=== PATIENT | male | born 1980 | race Caucasian/White ===

== ENCOUNTER → 2017-05-27 | Outpatient (CLI) | payer OTHER ==
[2017-05-27 13:06] LABS: Blood Urea Nitrogen 16 mg/dL (9-20); Lithium 0.4 mmol/L
[2017-05-27 13:23] LABS: T4, Free (Free Thyroxine) 1.33 ng/dL (0.78-2.19)
== END | disposition home or self-care (01) ==
LOC: LABWHC1 12:16
PROVIDERS: ATTEND Psychiatry & Neurology Psychiatry
DX: Z51.81 Encounter for therapeutic drug level monitoring (principal); Z79.899 Other long term (current) drug therapy
CPT/HCPCS: 36415; 80178; 82565; 84439; 84443; 84520

== ENCOUNTER → 2017-07-28 | Outpatient (CLI) | payer OTHER ==
[2017-07-28 09:31] LABS: Blood Urea Nitrogen 19 mg/dL (9-20); Cholesterol 149 mg/dL (<200); Glucose 95 mg/dL (74-99); HDL Cholesterol 72 mg/dL (40-60); LDL Cholesterol,Calculated 63 mg/dL (0-99); Lithium 0.4 mmol/L; Triglycerides 69 mg/dL (<150)
[2017-07-28 09:48] LABS: T4, Free (Free Thyroxine) 1.03 ng/dL (0.78-2.19)
[2017-07-28 12:02] LABS: Hemoglobin A1C 5.1 % (4.0-6.0)
== END ==
LOC: LABWHC1 06:50
PROVIDERS: ATTEND Psychiatry & Neurology Psychiatry
DX: Z51.81 Encounter for therapeutic drug level monitoring (principal); Z79.899 Other long term (current) drug therapy
CPT/HCPCS: 36415; 80061; 80178; 82565; 82947; 83036; 84439; 84443; 84520

== ENCOUNTER → 2017-08-13 | Outpatient (CLI) | payer OTHER | END | disposition home or self-care (01) | LOC: LABWHC1 06:33 | PROVIDERS: ATTEND Psychiatry & Neurology Psychiatry | DX: Z51.81 Encounter for therapeutic drug level monitoring (principal); Z79.899 Other long term (current) drug therapy | CPT/HCPCS: 36415; 80178 ==

== ENCOUNTER → 2017-10-21 | Outpatient (CLI) | payer OTHER ==
[2017-10-21 11:35] LABS: Lithium 1.2 mmol/L
[2017-10-21 11:53] LABS: T4, Free (Free Thyroxine) 1.01 ng/dL (0.78-2.19)
== END | disposition home or self-care (01) ==
LOC: LABWHC1 10:57
PROVIDERS: ATTEND Psychiatry & Neurology Psychiatry
DX: Z51.81 Encounter for therapeutic drug level monitoring (principal); Z79.899 Other long term (current) drug therapy
CPT/HCPCS: 36415; 80178; 84439; 84443

== ENCOUNTER → 2018-06-07 | Outpatient (CLI) | payer OTHER ==
--- NOTE | 2018-06-08 08:03 | XR ---
EXAMINATION TYPE: XR abdomen 1V DATE OF EXAM: 06/07/2018 4:08 PM CLINICAL HISTORY: Nausea with vomiting. TECHNIQUE: Two supine KUB images of the abdomen are obtained. COMPARISON: None. FINDINGS: Some paucity of bowel gas is noted. Gas is seen in nondistended stomach as well as scattere d small and large bowel loops. There is no visceromegaly or suspicious calcification appreciated. The visualized osseous structures are intact. IMPRESSION: Overall nonspecific but strongly favor nonobstructive bowel gas pattern.
== END | disposition home or self-care (01) ==
LOC: RADXRMAIN 15:44
PROVIDERS: ATTEND Nurse Practitioner
DX: R11.2 Nausea with vomiting, unspecified (principal)
CPT/HCPCS: 74018

== ENCOUNTER 2020-04-05 10:30 | Emergency (ER) | payer OTHER ==
[2020-04-05 10:50] VITALS: RESP 18; TEMP 98.2
[2020-04-05] MEDS ORDERED: SODIUM CHLORIDE 0.9% 1,000 ML IV STA (11:21)
[2020-04-05] MEDS ORDERED: MORPHINE SULFATE 4 MG/ML SYRINGE IV STA (11:21)
[2020-04-05] MEDS ORDERED: ONDANSETRON 4 MG/2 ML VIAL IVP STA (11:21)
[2020-04-05 12:07] LABS: Basophils # (A) 0.1 k/uL (0-0.2); Basophils % (A) 1 %; Eosinophils # (A) 0.1 k/uL (0-0.7); Eosinophils % (A) 1 %; HGB 16.4 gm/dL (13.0-17.5); Lymphocytes # (A) 1.7 k/uL (1.0-4.8); Lymphocytes % (A) 28 %; MCH 29.4 pg (25.0-35.0); MCHC 32.8 g/dL (31.0-37.0); MCV 89.7 fL (80.0-100.0); Mean Platelet Volume 6.5; Monocytes # (A) 0.5 k/uL (0-1.0); Monocytes % (A) 8 %; Neutrophils # (A) 3.6 k/uL (1.3-7.7); Neutrophils % (A) 60 %; Platelet Count 317 k/uL (150-450); RBC 5.57 m/uL (4.30-5.90); RDW 12.4 % (11.5-15.5); WBC 6.1 k/uL (3.8-10.6)
[2020-04-05 12:25] LABS: ALT 26 U/L (4-49); AST 24 U/L (17-59); African American GFR (CKD) >90 (>60 ml/min/1.73 sqM); Albumin 5.2 g/dL (3.5-5.0); Alkaline Phosphatase 70 U/L (38-126); Amylase 61 U/L (30-110); Anion Gap 6 mmol/L; Blood Urea Nitrogen 16 mg/dL (9-20); Calcium 10.3 mg/dL (8.4-10.2); Carbon Dioxide 26 mmol/L (22-30); Chloride 100 mmol/L (98-107); Glucose 88 mg/dL (74-99); Lipase 55 U/L (23-300); Non-African American GFR(CKD) >90 (>60 ml/min/1.73 sqM); Sodium 132 mmol/L (137-145); Total Bilirubin 0.7 mg/dL (0.2-1.3)
--- NOTE | 2020-04-05 12:30 | ED ---
Abdominal Pain HPI - General Chief Complaint: Abdominal Pain Stated Complaint: Abdominal pain Time Seen by Provider: 04/05/20 11:01 Source: patient Mode of arrival: wheelchair Limitations: no limitations - History of Present Illness Initial Comments: Patient is a 40-year-old male presenting to emergency Department with complaints of right lower quadrant abdominal pain as well as nausea and vomiting 2 days. Patient states about 5 days ago he started coming down with flulike symptoms since his body aches, chills. Patient states he went to his PCP 2 days ago and was tested for Covid, he is awaiting the results. Patient states 2 days ago is when his right lower quadrant abdominal pain started as well as the nausea and vomiting. He states it is sharp, continuous, 7/10. He does admit to some radiation into his right groin. He denies any diarrhea. He denies history of abdominal surgeries. He denies any fevers. He does have a mild cough. He denies any chest pain or shortness of breath. He has no further complaints at this time. Upon arrival to the ER, his vital signs are stable. - Related Data Home Medications Medication Instructions Recorded Confirmed amLODIPine [Norvasc] 10 mg PO DAILY 04/05/20 04/05/20 lisinopriL [Zestril] 20 mg PO DAILY 04/05/20 04/05/20 Allergies Allergy/AdvReac Type Severity Reaction Status Date / Time Penicillins Allergy Unknown Verified 04/05/20 11:39 Childhood Review of Systems ROS Statement: Those systems with pertinent positive or pertinent negative responses have been documented in the HPI. ROS Other: All systems not noted in ROS Statement are negative. Past Medical History Past Medical History: Hypertension History of Any Multi-Drug Resistant Organisms: None Reported Past Surgical History: No Surgical Hx Reported Past Psychological History: Bipolar Smoking Status: Current every day smoker Past Alcohol Use History: None Reported Past Drug Use History: Marijuana General Exam - General Exam Comments Initial Comments: GENERAL: Patient is well-developed and well-nourished. Patient is nontoxic and in no acute distress. HEAD: Atraumatic, normocephalic. EYES: Pupils equal round and reactive to light, extraocular movements intact, sclera anicteric, conjunctiva are normal. Eyelids were unremarkable. ENT: TMs normal, nares patent, oropharynx clear without exudates. Moist mucous membranes. NECK: Normal range of motion, supple without lymphadenopathy or JVD. LUNGS: Unlabored respirations. Breath sounds clear to auscultation bilaterally and equal. No wheezes rales or rhonchi. HEART: Regular rate and rhythm without murmurs, rubs or gallops. ABDOMEN: Tender in the right lower quadrant, positive guarding. Soft, normoactive bowel sounds. No masses appreciated. : Deferred MUSCULOSKELETAL: Normal extremities with adequate strength and normal range of motion, no pitting or edema. No clubbing or cyanosis. NEUROLOGICAL: Patient is alert and oriented x 3. Motor and sensory are also intact. Cranial nerves II through XII grossly intact. Symmetrical smile. Normal speech, normal gait. PSYCH: Normal mood, normal affect. SKIN: Warm, Dry, normal turgor, no rashes or lesions noted. Limitations: no limitations Course Vital Signs 04/05/20 04/05/20 04/05/20 10:45 13:00 13:34 Temperature 98.2 F 98.2 F Pulse Rate 109 H 76 72 Respiratory 18 18 18 Rate Blood Pressure 120/79 132/65 129/65 O2 Sat by Pulse 99 99 99 Oximetry Medical Decision Making - Medical Decision Making Patient is a 40-year-old male here for right lower quadrant pain, nausea and vomiting 2 days. He has had flulike symptoms for the last 5 days, Covid tested 2 days ago, awaiting the results. He arrives afebrile. He does have tenderness in right lower quadrant with guarding. Labs show a normal white count, normal lipase, normal lactic acid. Urine is normal. EKG the abdomen shows no evidence of appendicitis, does have some mild abdominal lymph nodes, no other acute findings. Patient received some fluids, Zofran and pain control. He reports improvement of symptoms. I discussed with patient is most likely viral in nature. I recommended continuing Tylenol Motrin for discomfort. He can follow-up with his regular doctor. He is in agreement with this plan of c are. Return parameters were discussed with the patient he verbalizes understanding. Case discussed with Dr. Velazquez. - Lab Data Result diagrams: 04/05/20 11:43 04/05/20 11:43 Lab Results 04/05/20 04/05/20 04/05/20 Range/Units 11:43 11:43 11:43 WBC 6.1 (3.8-10.6) k/uL RBC 5.57 (4.30-5.90) m/uL Hgb 16.4 (13.0-17.5) gm/dL Hct 50.0 (39.0-53.0) % MCV 89.7 (80.0-100.0) fL MCH 29.4 (25.0-35.0) pg MCHC 32.8 (31.0-37.0) g/dL RDW 12.4 (11.5-15.5) % Plt Count 317 (150-450) k/uL MPV 6.5 Neutrophils % 60 % Lymphocytes % 28 % Monocytes % 8 % Eosinophils % 1 % Basophils % 1 % Neutrophils # 3.6 (1.3-7.7) k/uL Lymphocytes # 1.7 (1.0-4.8) k/uL Monocytes # 0.5 (0-1.0) k/uL Eosinophils # 0.1 (0-0.7) k/uL Basophils # 0.1 (0-0.2) k/uL Sodium 132 L (137-145) mmol/L Potassium 5.0 (3.5-5.1) mmol/L Chloride 100 (98-107) mmol/L Carbon Dioxide 26 (22-30) mmol/L Anion Gap 6 mmol/L BUN 16 (9-20) mg/dL Creatinine 0.95 (0.66-1.25) mg/dL Est GFR (CKD-EPI)AfAm >90 (>60 ml/min/1.73 sqM) Est GFR (CKD-EPI)NonAf >90 (>60 ml/min/1.73 sqM) Glucose 88 (74-99) mg/dL Plasma Lactic Acid Alex 0.7 (0.7-2.0) mmol/L Calcium 10.3 H (8.4-10.2) mg/dL Total Bilirubin 0.7 (0.2-1.3) mg/dL AST 24 (17-59) U/L ALT 26 (4-49) U/L Alkaline Phosphatase 70 (38-126) U/L Total Protein 8.0 (6.3-8.2) g/dL Albumin 5.2 H (3.5-5.0) g/dL Amylase 61 (30-110) U/L Lipase 55 (23-300) U/L Urine Color Urine Appearance (Clear) Urine pH (5.0-8.0) Ur Specific [place] (1.001-1.035) Urine Protein (Negative) Urine Glucose (UA) (Negative) Urine Ketones (Negative) Urine Blood (Negative) Urine Nitrite (Negative) Urine Bilirubin (Negative) Urine Urobilinogen (<2.0) mg/dL Ur Leukocyte Esterase (Negative) 04/05/20 Range/Units 13:03 WBC (3.8-10.6) k/uL RBC (4.30-5.90) m/uL Hgb (13.0-17.5) gm/dL Hct (39.0-53.0) % MCV (80.0-100.0) fL MCH (25.0-35.0) pg MCHC (31.0-37.0) g/dL RDW (11.5-15.5) % Plt Count (150-450) k/uL MPV Neutrophils % % Lymphocytes % % Monocytes % % Eosinophils % % Basophils % % Neutrophils # (1.3-7.7) k/uL Lymphocytes # (1.0-4.8) k/uL Monocytes # (0-1.0) k/uL Eosinophils # (0-0.7) k/uL Basophils # (0-0.2) k/uL Sodium (137-145) mmol/L Potassium (3.5-5.1) mmol/L Chloride (98-107) mmol/L Carbon Dioxide (22-30) mmol/L Anion Gap mmol/L BUN (9-20) mg/dL Creatinine (0.66-1.25) mg/dL Est GFR (CKD-EPI)AfAm (>60 ml/min/1.73 sqM) Est GFR (CKD-EPI)NonAf (>60 ml/min/1.73 sqM) Glucose (74-99) mg/dL Plasma Lactic Acid Alex (0.7-2.0) mmol/L Calcium (8.4-10.2) mg/dL Total Bilirubin (0.2-1.3) mg/dL AST (17-59) U/L ALT (4-49) U/L Alkaline Phosphatase (38-126) U/L Total Protein (6.3-8.2) g/dL Albumin (3.5-5.0) g/dL Amylase (30-110) U/L Lipase (23-300) U/L Urine Color Yellow Urine Appearance Clear (Clear) Urine pH 6.5 (5.0-8.0) Ur Specific [place] 1.017 (1.001-1.035) Urine Protein Negative (Negative) Urine Glucose (UA) Negative (Negative) Urine Ketones Negative (Negative) Urine Blood Negative (Negative) Urine Nitrite Negative (Negative) Urine Bilirubin Negative (Negative) Urine Urobilinogen <2.0 (<2.0) mg/dL Ur Leukocyte Esterase Negative (Negative) Disposition Clinical Impression: Abdominal pain, Nausea and vomiting Disposition: HOME SELF-CARE Condition: Stable Instructions (If sedation given, give patient instructions): Abdominal Pain (ED) Additional Instructions: Please return to the Emergency Department if symptoms worsen or any other concerns. Labs and this computed tomography scan today are normal. May take Zofran as needed for additional nausea. Continued increase fluid intake. Follow-up with your PCP. Is patient prescribed a controlled substance at d/c from ED?: No Referrals: Yanique Faulkner DO [Primary Care Provider] - 1-2 days
--- NOTE | 2020-04-05 12:37 | CT ---
EXAMINATION TYPE: CT abdomen pelvis w con DATE OF EXAM: 04/05/2020 COMPARISON: None. HISTORY: Right lower quadrant pain with nausea and vomiting. CT DLP: 728 mGycm, Automated Exposure Control for Dose Reduction was Utilized. CONTRAST: CT scan of the abdomen and pelvis is performed without oral but with IV Contrast, patient injected wi th 100 mL of Isovue 300. FINDINGS: LUNG BASES: No significant abnormality is appreciated. LIVER/GB: No significant abnormality is appreciated. PANCREAS: No significant abnormality is seen. SPLEEN: No significant abnormality is seen. ADRENALS: No significant abnormality is seen. KIDNEYS: Symmetric cortical medullary uptake and excretion without concerning renal mass or hydroneph rosis seen bilaterally. BOWEL: Normal size appendix is seen ascending in extending medially from the cecum in the right upper pelvis. No surrounding inflammatory change. No abnormal bowel dilatation. PROSTATE/SEMINAL VESICLES: No gross abnormality seen. LYMPH NODES: No greater than 1cm abdominal or pelvic lymph nodes are appreciated. OSSEOUS STRUCTURES: Sacralized L5 segment bilaterally or accessory bilateral L1 ribs. OTHER: No significant additional abnormality is seen. IMPRESSION: No CT evidence for acute appendicitis. No significant acute finding is seen to account fo r patient's clinical symptoms.
[2020-04-05] MEDS ORDERED: ONDANSETRON 4 MG ODT STARTER PACK 2 TAB BTL PO STA (13:20)
[2020-04-05 13:22] LABS: Appearance,Urine Clear (Clear); Bilirubin,Urine Negative (Negative); Blood,Urine Negative (Negative); Color,Urine Yellow; Glucose,Urine (UA) Negative (Negative); Ketones,Urine Negative (Negative); Leukocyte Esterase,Urine Negative (Negative); Nitrite,Urine Negative (Negative); PH, Urine 6.5 (5.0-8.0); Protein,Urine Negative (Negative); Specific Gravity,Urine 1.017 (1.001-1.035); Urobilinogen,Urine <2.0 mg/dL (<2.0)
[2020-04-05 13:36] VITALS: BP 129/65; PULSE 72
== END 2020-04-05 13:34 | disposition home or self-care (01) ==
LOC: EC 10:30
DX: R10.31 Right lower quadrant pain (principal); R11.2 Nausea with vomiting, unspecified; R10.813 Right lower quadrant abdominal tenderness; I10 Essential (primary) hypertension; F17.200 Nicotine dependence, unspecified, uncomplicated; Z79.899 Other long term (current) drug therapy; Z88.0 Allergy status to penicillin
CPT/HCPCS: 36415; 80053; 82150; 83605; 83690; 85025; 81003; 74177; 99284; 96374; 96375; 96361; J2270; J2405; S0119; Q9967

== ENCOUNTER → 2020-09-27 | Outpatient (CLI) | payer OTHER ==
[2020-09-27 11:55] LABS: Basophils # (A) 0.06 X 10*3/uL (0.00-0.10); Basophils % (A) 0.7 %; Eosinophils % (A) 2.5 %; HCT 47.7 % (39.6-50.0); HGB 15.5 g/dL (13.0-17.0); Lymphocytes # (A) 3.04 X 10*3/uL (0.90-5.00); Lymphocytes % (A) 37.6 %; MCH 29.1 pg (27.0-32.0); MCHC 32.5 g/dL (32.0-37.0); MCV 89.7 fL (80.0-97.0); Mean Platelet Volume 9.5 fL (9.5-12.2); Monocytes # (A) 0.77 X 10*3/uL (0.20-1.00); Monocytes % (A) 9.5 %; Neutrophils # (A) 3.98 X 10*3/uL (1.80-7.70); Neutrophils % (A) 49.3 %; Platelet Count 328 X 10*3/uL (140-440); RBC 5.32 X 10*6/uL (4.40-5.60); RDW 12.6 % (11.5-14.5); WBC 8.08 X 10*3/uL (4.50-10.00)
[2020-09-27 14:02] LABS: T4, Free (Free Thyroxine) 1.6 ng/dL (0.80-1.80)
[2020-09-27 14:04] LABS: African American GFR (CKD) 95.5 (60.0-200.0); Albumin/Globulin Ratio 2.17 (1.60-3.17); Bilirubin, Conjugated 0.2 mg/dL (0.20-0.40); Bilirubin,Unconjugated 0.7 mg/dL; Chol/HDL Ratio 3.32; Globulin 2.3 g/dL (1.6-3.3); LDL Cholesterol,Calculated 119.2 mg/dL (0.0-131.0); Non-African American GFR(CKD) 82.4 (60.0-200.0); Total Bilirubin 0.9 mg/dL (0.3-1.2); Total Protein 7.3 g/dL (6.2-8.2); VLDL Calculation 12.8 mg/dL (5.00-40.00)
[2020-09-27 17:49] LABS: Hemoglobin A1C 5.2 % (4.0-6.0)
== END | disposition home or self-care (01) ==
LOC: LABWHC1 07:24
PROVIDERS: ATTEND Nurse Practitioner Family
DX: Z79.899 Other long term (current) drug therapy (principal)
CPT/HCPCS: 36415; 80061; 80076; 82565; 82947; 83036; 84439; 84443; 84520; 85025

== ENCOUNTER 2022-01-22 09:25 | Day surgery (SDC) | payer OTHER ==
[2022-01-22 09:57] VITALS: RESP 18; TEMP 97.8
[2022-01-22] MEDS ORDERED: LACTATED RINGERS 1,000 ML IV ONE (10:06)
[2022-01-22] MEDS ORDERED: LACTATED RINGERS 1,000 ML IV SCH (10:15)
[2022-01-22] MEDS ORDERED: PROPOFOL 10 MG/ML 20 ML VIAL IV ONE (11:03)
--- NOTE | 2022-01-22 11:09 | P.GSHP ---
History of Present Illness H&P Date: 01/22/22 Chief Complaint: Rectal bleeding This a 41-year-old male has issues rectal bleeding. Patient resents today for colonoscopy Past Medical History Past Medical History: Hypertension History of Any Multi-Drug Resistant Organisms: None Reported Past Surgical History: No Surgical Hx Reported Past Psychological History: Bipolar Smoking Status: Current every day smoker Past Alcohol Use History: None Reported Past Drug Use History: Marijuana Medications and Allergies Home Medications Medication Instructions Recorded Confirmed Type amLODIPine [Norvasc] 10 mg PO DAILY 04/05/20 01/22/22 History lisinopriL [Zestril] 20 mg PO DAILY 04/05/20 01/22/22 History Lisdexamfetamine Dimesylate 10 mg PO QAM 01/22/22 01/22/22 History [Vyvanse] buPROPion XL [Wellbutrin XL] 150 PO QAM 01/22/22 History Allergies Allergy/AdvReac Type Severity Reaction Status Date / Time Penicillins Allergy Unknown Verified 04/05/20 11:39 Childhood Surgical - Exam Vital Signs Temp Pulse Resp BP Pulse Ox 97.8 F 87 18 121/60 98 01/22/22 09:56 01/22/22 09:56 01/22/22 09:56 01/22/22 09:56 01/22/22 09:56 - General well developed, well nourished, no distress - Eyes PERRL - ENT normal pinna - Neck no masses - Respiratory normal expansion - Cardiovascular Rhythm: regular - Abdomen Abdomen: soft, non tender Assessment and Plan Assessment: Rectal bleeding. We'll perform colonoscopy
--- NOTE | 2022-01-22 11:17 | P.OP ---
Date of Procedure: 01/22/22 Preoperative Diagnosis: Rectal bleeding Postoperative Diagnosis: External hemorrhoids Procedure(s) Performed: Colonoscopy Anesthesia: MAC Surgeon: Nima Fernandez Pathology: none sent Condition: stable Disposition: PACU Description of Procedure: The patient's placed on the endoscopy table in the lateral position. He received IV sedation. Digital rectal exam was performed. This revealed external hemorrhoids. The flexible colonoscope was then placed patient anus and passed throughout the entire colon. The ileocecal valve was visualized. The cecum, ascending and transverse colon appeared normal. The descending and sigmoid colon appeared normal. The scope was brought back the rectum this appea red normal. Scope was withdrawn from the anus and internal and external hemorrhoids are noted. The scope was withdrawn for patient. Presumed patient had bleeding from hemorrhoids. There was no bleeding seen on his scope today.
[2022-01-22 11:38] VITALS: BP 113/80; PULSE 90
== END 2022-01-22 11:59 | disposition home or self-care (01) ==
LOC: ORWHC2ENDO 09:25
PROVIDERS: ATTEND Surgery
DX: K64.4 Residual hemorrhoidal skin tags (principal); K62.5 Hemorrhage of anus and rectum; I10 Essential (primary) hypertension; F31.9 Bipolar disorder, unspecified; F17.200 Nicotine dependence, unspecified, uncomplicated; F12.90 Cannabis use, unspecified, uncomplicated; Z88.0 Allergy status to penicillin; Z79.899 Other long term (current) drug therapy
CPT/HCPCS: 45378; J2704

== ENCOUNTER → 2024-08-10 | Outpatient (CLI) | payer OTHER ==
[2024-08-10 15:09] LABS: Basophils % (A) 0.6 %; Eosinophils # (A) 0.06 X 10*3/uL (0.04-0.35); Eosinophils % (A) 0.8 %; HCT 44.9 % (39.6-50.0); HGB 14.7 g/dL (13.0-17.0); Lymphocytes % (A) 22.7 %; MCH 29.5 pg (27.0-32.0); MCHC 32.7 g/dL (32.0-37.0); MCV 90.2 FL (80.0-97.0); Monocytes # (A) 0.53 X 10*3/uL (0.20-1.00); Monocytes % (A) 6.7 %; NRBC Per 100 WBC 0 X 10*3/uL (0.00-0.01); Neutrophils # (A) 5.46 X 10*3/uL (1.80-7.70); Neutrophils % (A) 68.8 %; Platelet Count 341 X 10*3/uL (140-440); RBC 4.98 X 10*6/uL (4.40-5.60); RDW 12.6 % (11.5-14.5); WBC 7.93 X 10*3/uL (4.50-10.00)
[2024-08-10 15:10] LABS: Basophils # (A) 0.05 X 10*3/uL (0.00-0.10)
[2024-08-10 15:56] LABS: ALT 32 U/L (10-49); AST 28 U/L (14-35); Albumin 4.8 g/dL (3.8-4.9); Albumin/Globulin Ratio 2.18 Ratio (1.60-3.17); Alkaline Phosphatase 81 U/L (41-126); Bilirubin, Conjugated <0.20 mg/dL (0.20-0.40); Bilirubin,Unconjugated >0 mg/dL (0.20-1.00); Blood Urea Nitrogen 16.4 mg/dL (9.0-27.0); Chol/HDL Ratio 3.12 Ratio; Globulin 2.2 g/dL (1.6-3.3); LDL Cholesterol,Calculated 120.8 mg/dL (0.0-131.0); T4, Free (Free Thyroxine) 1.28 ng/dL (0.80-1.80); Total Bilirubin 0.2 mg/dL (0.3-1.2); VLDL Calculation 15.72 mg/dL (5.00-40.00)
== END | disposition home or self-care (01) ==
LOC: LABWHC1 10:03
PROVIDERS: ATTEND Internal Medicine Geriatric Medicine
DX: Z51.81 Encounter for therapeutic drug level monitoring (principal); Z79.899 Other long term (current) drug therapy
CPT/HCPCS: 36415; 80061; 80076; 82306; 82565; 83036; 84439; 84443; 84520; 85025